=== PATIENT | male | born 1990 | race Caucasian/White ===

== ENCOUNTER 2021-12-26 17:15 | Emergency (ER) | payer BC ==
[2021-12-26 19:10] LABS: HEMOGLOBIN 14.5 gm/dl (14.0-17.5); RED BLOOD COUNT 4.69 M/UL (4.20-5.50); WHITE BLOOD COUNT 5.2 K/UL (4.5-11.0)
[2021-12-26 19:52] LABS: BUN/CREATININE RATIO 11 (0-10)
== END 2021-12-26 23:19 | disposition home or self-care (01) ==
LOC: ER1 17:15
PROVIDERS: Emergency Medicine
DX: R07.9 Chest pain, unspecified (principal)
CPT/HCPCS: 71045; 71275; 80053; 82550; 82553; 84484; 85025; 85379; 93005; 99285; Q9967